=== PATIENT | female | born 1990 | race Caucasian/White ===

== ENCOUNTER 2019-10-28 08:58 | Inpatient (IN) | payer MEDICAID, OTHER ==
[2019-10-28] MEDS ORDERED: Butorphanol 1 MG/ML SDV IVPUSH PRN (09:58)
[2019-10-28] MEDS ORDERED: Sodium Chloride 0.9% 2.5 ML Syringe FLUSH PRN (09:58)
[2019-10-28] MEDS ORDERED: Nalbuphine 10 MG/1 ML Vial IVPUSH PRN (09:58)
[2019-10-28] MEDS ORDERED: Sodium Chloride 0.9% 10 ML Syringe FLUSH PRN (09:58)
[2019-10-28] MEDS ORDERED: Lidocaine 1% 50 ML MDV INJECT PRN (09:58)
[2019-10-28] MEDS ORDERED: Sodium Chloride 0.9% 10 ML SDV IV PRN (09:58)
[2019-10-28] MEDS ORDERED: Misoprostol 200 MCG Tab PO PRN (09:58)
[2019-10-28] MEDS ORDERED: Water For Irrigation,Sterile 1,000 ML Container IRR PRN (09:58)
[2019-10-28] MEDS ORDERED: Tranexamic Acid 1,000 MG in Sodium Chloride 0.9% 100 ML IV PRN (09:58)
[2019-10-28] MEDS ORDERED: Methylergonovine 0.2 MG/1 ML Amp IM PRN (09:58)
[2019-10-28] MEDS ORDERED: Carboprost Tromethamine 250 MCG/1 ML Amp IM PRN (09:58)
[2019-10-28] MEDS ORDERED: Oxytocin/0.9 % Sodium Chloride 30 UNIT/500 ML BAG IV SCH ×2 (10:00→16:45)
[2019-10-28] MEDS: Lactated Ringers 1,000 ML IV SCH ×3 (10:26→19:51)
[2019-10-28] MEDS ORDERED: Ampicillin 2 GM in Sodium Chloride 0.9% 100 ML IV ONE (10:30)
--- NOTE | 2019-10-28 10:48 | PCM.LDHP ---
L&D History of Present Illness - General Date of Service: 10/28/19 Admit Problem/Dx: Patient Status Order with Admit Dx/Problem 10/28/19 08:53 Patient Status [ADT] Routine 10/28/19 09:58 Patient Status [ADT] Routine Admission Diagnosis/Problem Admission Diagnosis/Problem Source of Information: Patient History Limitations: Reports: No Limitations - History of Present Illness Introduction:: at 39 weeks (DYLON: 11/04/19); cristhian approximately every 5 minutes; A+, rubella immune, GBS positive; SVE 4cm/100%/-3, soft, midposition, membranes intact per nurse report H&P Review of Systems - Review of Systems: Review Of Systems: See Below General: Reports: No Symptoms HEENT: Reports: No Symptoms Pulmonary: Reports: No Symptoms Cardiovascular: Reports: No Symptoms Gastrointestinal: Reports: No Symptoms Genitourinary: Reports: No Symptoms Musculoskeletal: Reports: No Symptoms Skin: Reports: No Symptoms Psychiatric: Reports: No Symptoms Neurological: Reports: No Symptoms Hematologic/Lymphatic: Reports: No Symptoms Immunologic: Reports: No Symptoms L&D Exam - Exam Exam: See Below - OB Specific Contraction Intensity: Mild to Moderate Movement: Active Heart Tones: Present Heart Rate (FHR) Variability: Moderate (6-25 bmp) Presentation: Vertex - Wong Score Wong Score Cervix Position: Midposition Wong Score Consistency: Soft Wong Score Effacement: >80% Wong Score Dilation: 3-4 cm Wong Score Infant's Station: -3 Wong Score Total: 8 - Exam General: Alert, Oriented, Cooperative Lungs: Normal Respiratory Effort Cardiovascular: Regular Rate, Regular Rhythm GI/Abdominal Exam: Soft, Non-Tender Rectal Exam: Deferred Genitourinary: Deferred Back Exam: Normal Inspection, Full Range of Motion Extremities: Normal Inspection, Normal Range of Motion, Non-Tender, Normal Capillary Refill Skin: Warm, Dry, Intact Neurological: Strength Equal Bilateral, Normal Speech, Normal Tone, Sensation Intact Psychiatric: Alert, Normal Affect, Normal Mood - Problem List (1) Supervision of normal IUP (intrauterine ) in primigravida SNOMED Code(s): 69058532, 945224582, 989375975, 494258553 ICD Code: Z34.00 - ENCNTR FOR SUPRVSN OF NORMAL FIRST , UNSP TRIMESTER Status: Acute Priority: High Current Visit: Yes Qualifiers: Trimester: third trimester Qualified Code(s): Z34.03 - Encounter for supervision of normal first , third trimester Problem List Initiated/Reviewed/Updated: Yes Orders Last 24hrs: Active Orders 24 hr Category Date Time Status Patient Status [ADT] Routine ADT 10/28/19 08:53 Active Patient Status [ADT] Routine ADT 10/28/19 09:58 Active Heart Tones [RC] CONTINUOUS Care 10/28/19 09:58 Active Non Stress Test [RC] PER UNIT ROUTINE Care 10/28/19 09:56 Active Non Stress Test [RC] PER UNIT ROUTINE Care 10/28/19 09:58 Active May Shower [RC] ASDIRECTED Care 10/28/19 09:58 Active Notify Provider [RC] PRN Care 10/28/19 09:58 Active Up ad Kena [RC] ASDIRECTED Care 10/28/19 09:56 Active Up ad Kena [RC] ASDIRECTED Care 10/28/19 09:58 Active Vaginal Exam [RC] Click to Edit Care 10/28/19 09:56 Active Vaginal Exam [RC] PRN Care 10/28/19 09:58 Active Vital Signs [RC] PER UNIT ROUTINE Care 10/28/19 09:56 Active Vital Signs [RC] PER UNIT ROUTINE Care 10/28/19 09:58 Active CBC W/O DIFF,HEMOGRAM [HEME] Routine Lab 10/28/19 09:58 Ordered RPR (SYPHILIS SERO) W/ RFLX [REF] Routine Lab 10/28/19 09:58 Ordered TYPE AND SCREEN [BBK] Routine Lab 10/28/19 09:58 Ordered Ampicillin 1 gm Med 10/28/19 14:30 Active Sodium Chloride 0.9% [Normal Saline] 50 ml IV Q4H Ampicillin 2 gm Med 10/28/19 10:30 Active Sodium Chloride 0.9% [Normal Saline] 100 ml IV ONETIME Butorphanol [Stadol] Med 10/28/19 09:58 Active 1 mg IVPUSH Q1H PRN Carboprost Tromethamine [Hemabate DS] Med 10/28/19 09:58 Active 250 mcg IM ASDIRECTED PRN Lactated Ringers [Ringers, Lactated] 1,000 ml Med 10/28/19 10:00 Active IV ASDIRECTED Lidocaine 1% [Xylocaine 1%] Med 10/28/19 09:58 Active 50 ml INJECT ONETIME PRN Methylergonovine [Methergine] Med 10/28/19 09:58 Active 0.2 mg IM ASDIRECTED PRN Nalbuphine [Nubain] Med 10/28/19 09:58 Active 10 mg IVPUSH Q1H PRN Oxytocin/0.9 % Sodium Chloride [Oxytocin 30 Unit/500 ML Med 10/28/19 10:00 Active -NS] 30 unit in 500 ml IV TITRATE Sodium Chloride 0.9% [Normal Saline] Med 10/28/19 09:58 Active 10 ml IV ASDIRECTED PRN Sodium Chloride 0.9% [Saline Flush] Med 10/28/19 09:58 Active 10 ml FLUSH ASDIRECTED PRN Sodium Chloride 0.9% [Saline Flush] Med 10/28/19 09:58 Active 2.5 ml FLUSH ASDIRECTED PRN Tranexamic Acid [Cyklokapron] 1,000 mg Med 10/28/19 09:58 Active Sodium Chloride 0.9% [Normal Saline] 100 ml IV ONETIME Water For Irrigation,Sterile [Sterile Water for Med 10/28/19 09:58 Active Irrigation] 1,000 ml IRR ASDIRECTED PRN miSOPROStoL [Cytotec] Med 10/28/19 09:58 Active 200 mcg PO ONETIME PRN Scalp Electrode [WOMSER] Per Unit Routine Oth 10/28/19 09:58 Ordered Peripheral IV Insertion Adult [OM.PC] Routine Oth 10/28/19 09:58 Ordered Resuscitation Status Routine Resus Stat 10/28/19 09:56 Ordered Medication Orders Butorphanol Tartrate (Stadol) 1 mg IVPUSH Q1H PRN PRN Reason: Pain Carboprost Tromethamine (Hemabate Ds) 250 mcg IM ASDIRECTED PRN PRN Reason: Post Hemorrhage Lactated Ringer's (Ringers, Lactated) 1,000 mls @ 150 mls/hr IV ASDIRECTED MENDEZ Last Admin: 10/28/19 10:26 Dose: 150 mls/hr Documented by: BARBRA Oxytocin/Sodium Chloride (Oxytocin 30 Unit/500 Ml-Ns) 30 unit in 500 mls @ 500 mls/hr IV TITRATE [facility] Tranexamic Acid 1,000 mg/ (Sodium Chloride) 110 mls @ 660 mls/hr IV ONETIME PRN PRN Reason: Bleeding Ampicillin Sodium 2 gm/ Sodium (Chloride) 100 mls @ 200 mls/hr IV ONETIME ONE Stop: 10/28/19 10:59 Last Admin: 10/28/19 10:32 Dose: 200 mls/hr Documented by: KNUDAMB Ampicillin Sodium 1 gm/ Sodium (Chloride) 50 mls @ 100 mls/hr IV Q4H MENDEZ Lidocaine HCl (Xylocaine 1%) 50 ml INJECT ONETIME PRN PRN Reason: Laceration repair Methylergonovine Maleate (Methergine) 0.2 mg IM ASDIRECTED PRN PRN Reason: Post Hemorrhage Misoprostol (Cytotec) 200 mcg PO ONETIME PRN PRN Reason: Post Hemorrhage Nalbuphine HCl (Nubain) 10 mg IVPUSH Q1H PRN PRN Reason: Pain (severe 7-10) Sodium Chloride (Saline Flush) 10 ml FLUSH ASDIRECTED PRN PRN Reason: Keep Vein Open Sodium Chloride (Saline Flush) 2.5 ml FLUSH ASDIRECTED PRN PRN Reason: Keep Vein Open Sodium Chloride (Normal Saline) 10 ml IV ASDIRECTED PRN PRN Reason: IV Use Sterile Water (Sterile Water For Irrigation) 1,000 ml IRR ASDIRECTED PRN PRN Reason: delivery Assessment/Plan Comment:: Admit A: at 39 weeks (DYLON: 11/04/19) presenting to labor and delivery with complaints of uterine contractions increasing in frequency and pain; cristhian approximately every 5 minutes; A+, Rubella immune, GBS+; SVE 4cm/100%/-3, soft, midposition, membranes intact per nurse report P: Admit for labor; start GBS prophylaxis; epidural PRN; Dr. Min updated.
[2019-10-28] MEDS: Ampicillin 1 GM in Sodium Chloride 0.9% 50 ML IV SCH ×2 (14:29→19:00)
[2019-10-28] MEDS ORDERED: Bupivicaine/fentaNYL/NS 250 ML ONE (18:19)
--- NOTE | 2019-10-28 19:17 | PCM.PREANE ---
Preanesthetic Assessment - Procedure Proposed Procedure: continuous labor epidural - Anesthesia/Transfusion/Family Hx Anesthesia History: No Prior Anesthesia Transfusion History: No Prior Transfusion(s) - Review of Systems General: No Symptoms Pulmonary: No Symptoms Cardiovascular: No Symptoms Gastrointestinal: No Symptoms Neurological: No Symptoms Other: Reports: None - Physical Assessment Vital Signs: see RN charting Height: 5 ft 2 in Weight: 84.368 kg ASA Class: 2 Mental Status: Alert & Oriented x3 Airway Class: Mallampati = 1 Dentition: Reports: Normal Dentition ROM/Head Extension: Full Lungs: Clear to Auscultation, Normal Respiratory Effort Cardiovascular: Regular Rate, Regular Rhythm - Lab Values: Laboratory Last Values WBC 7.99 K/uL (4.0-11.0) 10/28/19 10: RBC 4.42 M/uL (4.30-5.90) 10/28/19 10: Hgb 12.2 g/dL (12.0-16.0) 10/28/19 10:26 Hct 38.1 % (36.0-46.0) 10/28/19 10:26 MCV 86.2 fL (80.0-98.0) 10/28/19 10:26 MCH 27.6 pg (27.0-32.0) 10/28/19 10:26 MCHC 32.0 g/dL (31.0-37.0) 10/28/19 10:26 RDW Std Deviation 48.2 fl (28.0-62.0) 10/28/19 10:26 RDW Coeff of Aylin 16 % (11.0-15.0) H 10/28/19 10:26 Plt Count 211 K/uL (150-400) 10/28/19 10:26 MPV 12.60 fL (7.40-12.00) H 10/28/19 10:26 Nucleated RBC % 0.0 /100WBC 10/28/19 10:26 Nucleated RBCs # 0 K/uL 10/28/19 10:26 COVID-19 (ЕКАТЕРИНА) NEGATIVE (NEGATIVE) 10/28/19 10:45 Blood Type A POSITIVE 10/28/19 10:26 Antibody Screen NEGATIVE 10/28/19 10:26 - Allergies Allergies/Adverse Reactions: Allergies Allergy/AdvReac Type Severity Reaction Status Date / Time No Known Allergies Allergy Verified 10/28/19 10:53 - Acknowledgements Anesthesia Type Planned: Epidural Pt an Appropriate Candidate for the Planned Anesthesia: Yes Alternatives and Risks of Anesthesia Discussed w Pt/Guardian: Yes Pt/Guardian Understands and Agrees with Anesthesia Plan: Yes PreAnesthesia Questionnaire - Past Health History Medical/Surgical History: Denies Medical/Surgical History HEENT History: Reports: None Cardiovascular History: Reports: None Respiratory History: Reports: None Gastrointestinal History: Reports: None Genitourinary History: Reports: None ASTROCHEMIST History: Reports: : 1 Para: 0 Musculoskeletal History: Reports: None Neurological History: Reports: None Psychiatric History: Reports: None Endocrine/Metabolic History: Reports: None Hematologic History: Reports: None Immunologic History: Reports: None Oncologic (Cancer) History: Reports: None Dermatologic History: Reports: None - Infectious Disease History Infectious Disease History: Reports: None - Past Surgical History Head Surgeries/Procedures: Reports: None - SUBSTANCE USE Smoking Status *Q: Never Smoker - HOME MEDS Home Medications: Home Meds . [No Known Home Meds] 10/28/19 [History] - CURRENT (IN HOUSE) MEDS Current Meds: Current Medications Butorphanol Tartrate (Stadol) 1 mg IVPUSH Q1H PRN PRN Reason: Pain Carboprost Tromethamine (Hemabate Ds) 250 mcg IM ASDIRECTED PRN PRN Reason: Post Hemorrhage Lactated Ringer's (Ringers, Lactated) 1,000 mls @ 150 mls/hr IV ASDIRECTED MENDEZ Last Admin: 10/28/19 16:31 Dose: 150 mls/hr Documented by: Oxytocin/Sodium Chloride (Oxytocin 30 Unit/500 Ml-Ns) 30 unit in 500 mls @ 500 mls/hr IV TITRATE MENDEZ Tranexamic Acid 1,000 mg/ (Sodium Chloride) 110 mls @ 660 mls/hr IV ONETIME PRN PRN Reason: Bleeding Ampicillin Sodium 1 gm/ Sodium (Chloride) 50 mls @ 100 mls/hr IV Q4H MENDEZ Last Admin: 10/28/19 19:00 Dose: 100 mls/hr Documented by: Oxytocin/Sodium Chloride (Oxytocin 30 Unit/500 Ml-Ns) 30 unit in 500 mls @ 2 mls/hr IV TITRATE MNEDEZ; Protocol Last Titration: 10/28/19 17:14 Dose: 6 munits/min, 6 mls/hr Documented by: Lidocaine HCl (Xylocaine 1%) 50 ml INJECT ONETIME PRN PRN Reason: Laceration repair Methylergonovine Maleate (Methergine) 0.2 mg IM ASDIRECTED PRN PRN Reason: Post Hemorrhage Misoprostol (Cytotec) 200 mcg PO ONETIME PRN PRN Reason: Post Hemorrhage Nalbuphine HCl (Nubain) 10 mg IVPUSH Q1H PRN PRN Reason: Pain (severe 7-10) Sodium Chloride (Saline Flush) 10 ml FLUSH ASDIRECTED PRN PRN Reason: Keep Vein Open Sodium Chloride (Saline Flush) 2.5 ml FLUSH ASDIRECTED PRN PRN Reason: Keep Vein Open Sodium Chloride (Normal Saline) 10 ml IV ASDIRECTED PRN PRN Reason: IV Use Sterile Water (Sterile Water For Irrigation) 1,000 ml IRR ASDIRECTED PRN PRN Reason: delivery Discontinued Medications Ampicillin Sodium 2 gm/ Sodium (Chloride) 100 mls @ 200 mls/hr IV ONETIME ONE Stop: 10/28/19 10:59 Last Admin: 10/28/19 10:32 Dose: 200 mls/hr Documented by: Fentanyl/Bupivacaine HCl (Fentanyl/Bupivacaine/Ns 2 Mcg-0.125% 250 Ml) Confirm Administered Dose 250 mls @ as directed .ROUTE .STK-MED ONE Stop: 10/28/19 18:20
[2019-10-28] MEDS ORDERED: Witch Hazel Medicated Pads 40/Jar TOP PRN (21:04)
[2019-10-28] MEDS ORDERED: Benzocaine/Menthol 20%-0.5% Spray 78 GM Cannister TOP PRN (21:04)
[2019-10-28] MEDS ORDERED: Bisacodyl 10 MG Supp RECTAL PRN (21:04)
[2019-10-28] MEDS ORDERED: Acetaminophen 500 MG Tab PO PRN ×2 (21:04)
[2019-10-28] MEDS ORDERED: Ibuprofen 400 MG Tab PO PRN (21:04)
[2019-10-28] MEDS ORDERED: oxyCODONE 5 MG Tab PO PRN (21:04)
[2019-10-28] MEDS ORDERED: Lanolin 100% Cream 7 GM Tube TOP PRN (21:04)
[2019-10-28] MEDS ORDERED: Ibuprofen 800 MG Tab PO PRN (21:04)
[2019-10-28] MEDS: Docusate Sodium 100 MG Cap PO PRN (22:01)
--- NOTE | 2019-10-29 07:50 | PCM48HPAN ---
Post Anesthesia Note - EVALUATION WITHIN 48HRS OF ANESTHETIC Vital Signs in Normal Range: Yes Patient Participated in Evaluation: Yes Respiratory Function Stable: Yes Airway Patent: Yes Cardiovascular Function Stable: Yes Hydration Status Stable: Yes Pain Control Satisfactory: Yes Nausea and Vomiting Control Satisfactory: Yes Mental Status Recovered: Yes Vital Signs: Last Vital Signs Temp 98.0 F 10/29/19 04:37 Pulse 87 10/29/19 04:37 Resp 15 10/29/19 04:37 BP 112/75 10/29/19 04:37 Pulse Ox 96 10/29/19 04:37 - COMMENTS/OBSERVATIONS Free Text/Narrative:: Pt. had been up and walking. Denied any weakness in the legs or numbness and tingling.
[2019-10-29] MEDS ORDERED: Calcium Carbonate 500 MG Tab.Chew PO PRN (08:27)
--- NOTE | 2019-10-29 11:05 | OR ---
SURGEON: Balta Min MD DATE OF PROCEDURE: 10/28/2019 Ms. Harris is 29 years old primigravida. She is 39+. She is followed in our practice primarily by our nurse midwifery service. She had no complication. Her GBS status was positive. She is admitted in active labor. At the time of admission, she was 4 to 5 cm with bulging bag of water. She was started on antibiotic appropriately, and after 2 doses of antibiotic, she had an artificial rupture of membranes of clear fluid. The patient progressed to complete, and commenced pushing. After pushing for an hour and a half without any progress, I was consulted. Examination showed that the fetus is in right occiput transverse, and it was zero station. At that time, heart rate was normal, and the baby was doing well. I advised the patient at the time to have epidural anesthesia to relax and labor down, which she did, and after an hour of epidural and laboring down, I re-evaluated the patient. She was in right occiput transverse, still in +1 station, and she was amenable to vacuum extraction, so after consulting and explaining to the patient, Kiwi vacuum extraction was applied, and then during the pushing, I was able to rotate the fetus to occiput anterior, and then we accomplished normal spontaneous vaginal delivery without any problem. Placenta delivered spontaneous, complete, and intact. There was no need for episiotomy. There was no labial, vaginal, or perineal laceration. Estimated the blood loss is 350 to 400 mL. heart rate was category 1 through the entire process of labor. There was no complication in the labor or the delivery of this fetus. YOUSUF / CHICA /[id number]
--- NOTE | 2019-10-30 10:47 | PCM.DCSUM1 ---
Discharge Summary - Hospital Course Free Text/Narrative:: Karla is a 31 yo PPD1 S/P uncomplicated to term NBF. 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 Patient is moderately well and supplementing with formula, resting comfortably in bed with in bassinet. Patient reports she is eating, voiding, ambulating independently and without difficulty. Patient denies any problems or concerns at this time except mild-moderate intermittent uterine cramping relieved with Tylenol and Ibuprofen. Patient reports small vaginal bleeding, with few small clots. Patient verbalizes her readiness to be discharged home. Diagnosis: Stroke: No - Discharge Data Discharge Date: 10/30/19 Discharge Disposition: Home, Self-Care 01 Condition: Good - Referral to Home Health Primary Care Physician: PCP None - Discharge Diagnosis/Problem(s) (1) Vacuum-assisted vaginal delivery SNOMED Code(s): 79858140809502410 ICD Code: Z37.9 - OUTCOME OF DELIVERY, UNSPECIFIED Status: Acute Priority: High Current Visit: Yes (2) Lactating mother SNOMED Code(s): 474475991, [id number] ICD Code: Z39.1 - ENCOUNTER FOR CARE AND EXAMINATION OF LACTATING MOTHER Status: Acute Priority: High Current Visit: Yes - Patient Instructions Diet: Usual Diet as Tolerated, Regular Diet as Tolerated, Drink 8-10+ Gla sses/Day, No Alcoholic Beverages Activity: As Tolerated, No Strenuous Activities Driving: May Drive Today Driving, Other: Sitz bath as needed for perineal comfort Showering/Bathing: May Shower Notify Provider of: Fever, Increased Pain, Swelling and Redness, Drainage, Nausea and/or Vomiting - Discharge Plan *PRESCRIPTION DRUG MONITORING PROGRAM REVIEWED*: No *COPY OF PRESCRIPTION DRUG MONITORING REPORT IN PATIENT RAJAT: No Prescriptions/Med Rec: Ibuprofen [Motrin] 800 mg PO Q8H PRN #90 tablet PRN Reason: Pain Home Medications: Home Meds Ibuprofen [Motrin] 800 mg PO Q8H PRN #90 tablet 10/30/19 [Rx] Oxygen Therapy Mode: Room Air Referrals: [facility] [Outside] Tere Garcia, GABINOM, [facility] [Mid-] - 12/09/19 1:15 pm - Discharge Summary/Plan Comment DC Time >30 min.: Yes (May discharge home today.) Discharge Summary/Plan Comment: Karla is a 29 yo PPD1 S/P uncomplicated to term NBF. 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 Hemodynamically stable, afebrile. Patient is exclusively moderately well, resting comfortably in bed with in bassinet. Patient reports she is eating, voiding, ambulating independently and without difficulty. Patient denies any problems or concerns at this time except mild-moderate intermittent uterine cramping relieved with Tylenol and Ibuprofen. Patient reports small rubra lochia with no clots. Patient verbalizes her readiness to be discharged home; D/C home today. Recommend F/U with [facility] technical solutions consultant for support: [phone]. RTO in 6 weeks for 6-week PPV or sooner if problems arise. - General Info Date of Service: 10/30/19 Admission Dx/Problem (Free Text: Patient Status Order with Admit Dx/Problem 10/28/19 08:53 Patient Status [ADT] Routine 10/28/19 09:58 Patient Status [ADT] Routine Admission Diagnosis/Problem Admission Diagnosis/Problem Functional Status: Reports: Pain Controlled - Review of Systems General: Reports: No Symptoms HEENT: Reports: No Symptoms Pulmonary: Reports: No Symptoms Cardiovascular: Reports: No Symptoms Gastrointestinal: Reports: No Symptoms Genitourinary: Reports: Pain (Mild to moderate uterine cramping.), Other (Small vaginal bleeding, few small clots.) Musculoskeletal: Reports: No Symptoms Skin: Reports: No Symptoms Neurological: Reports: No Symptoms Psychiatric: Reports: No Symptoms - Patient Data Vitals - Most Recent: Last Vital Signs Temp 96.9 F 10/30/19 08:35 Pulse 71 10/30/19 08:35 Resp 18 10/30/19 08:35 BP 106/63 10/30/19 08:35 Pulse Ox 98 10/30/19 08:35 Weight - Most Recent: 186 lb Med Orders - Current: Current Medications Acetaminophen (Tylenol Extra Strength) 500 mg PO Q4H PRN PRN Reason: Pain Acetaminophen (Tylenol Extra Strength) 1,000 mg PO Q4H PRN PRN Reason: Pain Benzocaine/Menthol (Dermoplast Pain Relief 20%-0.5% [place]) 0 gm TOP ASDIRECTED PRN PRN Reason: Perineal Comfort Measure Last Admin: 10/28/19 22:02 Dose: 1 canister Documented by: Bisacodyl (Dulcolax) 10 mg RECTAL ONETIME PRN PRN Reason: Constipation Calcium Carbonate/Glycine (Tums) 1,000 mg PO Q2HR PRN PRN Reason: Indigestion Last Admin: 10/29/19 09:32 Dose: 1,000 mg Documented by: Docusate Sodium (Colace) 100 mg PO BID PRN PRN Reason: Constipation Last Admin: 10/28/19 22:01 Dose: 100 mg Documented by: Emollient Ointment (Lansinoh Hpa) 0 gm TOP ASDIRECTED PRN PRN Reason: Sore Nipples Ibuprofen (Motrin) 400 mg PO Q4H PRN PRN Reason: Pain Ibuprofen (Motrin) 800 mg PO Q6H PRN PRN Reason: Pain Oxycodone HCl (Oxycodone) 5 mg PO Q2H PRN PRN Reason: Pain Witch Maria Luz (Tucks) 1 pad TOP ASDIRECTED PRN PRN Reason: comfort care Last Admin: 10/28/19 22:02 Dose: 1 tub Documented by: Discontinued Medications Butorphanol Tartrate (Stadol) 1 mg IVPUSH Q1H PRN PRN Reason: Pain Carboprost Tromethamine (Hemabate Ds) 250 mcg IM ASDIRECTED PRN PRN Reason: Post Hemorrhage Lactated Ringer's (Ringers, Lactated) 1,000 mls @ 150 mls/hr IV ASDIRECTED [facility] Last Admin: 10/28/19 19:51 Dose: 150 mls/hr Documented by: Oxytocin/Sodium Chloride (Oxytocin 30 Unit/500 Ml-Ns) 30 unit in 500 mls @ 500 mls/hr IV TITRATE [facility] Tranexamic Acid 1,000 mg/ (Sodium Chloride) 110 mls @ 660 mls/hr IV ONETIME PRN PRN Reason: Bleeding Ampicillin Sodium 2 gm/ Sodium (Chloride) 100 mls @ 200 mls/hr IV ONETIME ONE Stop: 10/28/19 10:59 Last Admin: 10/28/19 10:32 Dose: 200 mls/hr Documented by: Ampicillin Sodium 1 gm/ Sodium (Chloride) 50 mls @ 100 mls/hr IV Q4H [facility] Last Admin: 10/28/19 19:00 Dose: 100 mls/hr Documented by: Oxytocin/Sodium Chloride (Oxytocin 30 Unit/500 Ml-Ns) 30 unit in 500 mls @ 2 mls/hr IV TITRATE MENDEZ; Protocol Last Titration: 10/28/19 20:42 Dose: 999 munits/min, 999 mls/hr Documented by: Fentanyl/Bupivacaine HCl (Fentanyl/Bupivacaine/Ns 2 Mcg-0.125% 250 Ml) Confirm Administered Dose 250 mls @ as directed .ROUTE .Trippy-MED ONE Stop: 10/28/19 18:20 Last Admin: 10/29/19 16:22 Dose: Not Given Documented by: Lidocaine HCl (Xylocaine 1%) 50 ml INJECT ONETIME PRN PRN Reason: Laceration repair Methylergonovine Maleate (Methergine) 0.2 mg IM ASDIRECTED PRN PRN Reason: Post Hemorrhage Misoprostol (Cytotec) 200 mcg PO ONETIME PRN PRN Reason: Post Hemorrhage Nalbuphine HCl (Nubain) 10 mg IVPUSH Q1H PRN PRN Reason: Pain (severe 7-10) Sodium Chloride (Saline Flush) 10 ml FLUSH ASDIRECTED PRN PRN Reason: Keep Vein Open Sodium Chloride (Saline Flush) 2.5 ml FLUSH ASDIRECTED PRN PRN Reason: Keep Vein Open Sodium Chloride (Normal Saline) 10 ml IV ASDIRECTED PRN PRN Reason: IV Use Sterile Water (Sterile Water For Irrigation) 1,000 ml IRR ASDIRECTED PRN PRN Reason: delivery - Exam General: Reports: Alert, Oriented, Cooperative, No Acute Distress HEENT: Reports: Pupils Equal, Pupils Reactive, Mucous Membr. Moist/[place] Neck: Reports: Supple Lungs: Reports: Clear to Auscultation, Normal Respiratory Effort Cardiovascular: Reports: Regular Rate, Regular Rhythm GI/Abdominal Exam: Normal Bowel Sounds, Soft, Non-Tender, No Organomegaly, No Distention (Female) Exam: Normal External Exam, Enlarged Uterus ( uterus, U+2, firm), Vaginal Bleeding (Small rubra lochia, no clots.) Rectal (Female) Exam: Deferred Back Exam: Reports: Normal Inspection, Full Range of Motion Extremities: Normal Inspection, Normal Range of Motion, Non-Tender, No Pedal Edema, Normal Capillary Refill Skin: Reports: Warm, Dry, Intact Wound/Incisions: Reports: Healing Well Neurological: Reports: No New Focal Deficit Psy/Mental Status: Reports: Alert, Normal Affect, Normal Mood
[2019-10-30] MEDS: Docusate Sodium 100 MG Cap PO PRN (14:18)
== END 2019-10-30 20:15 | disposition home or self-care (01) | DRG 807 ==
LOC: MW.OBCHECK 08:58 → MW.OB 09:55 → OBSVTOIN 20:39 → MW.OB 23:55
PROVIDERS: ADMIT Obstetrics & Gynecology; ATTEND Nurse Practitioner Women's Health
PROC: 10D07Z6 Extraction of Products of Conception, Vacuum, Via Natural or Artificial Opening (ICD-10-PCS; principal; 2019-10-28)
PROC: 10907ZC Drainage of Amniotic Fluid, Therapeutic from Products of Conception, Via Natural or Artificial Opening (ICD-10-PCS; 2019-10-28)
DX: O99.824 Streptococcus B carrier state complicating childbirth (principal); Z37.0 Single live birth; Z3A.39 39 weeks gestation of pregnancy; Z20.828 Contact with and (suspected) exposure to other viral communicable diseases
CPT/HCPCS: 01967; 36415; 51702; 59025; 59409; 85014; 85018; 85027; 86592; 86850; 86900; 86901; A9270-GY; J0290; J2590; J7050; J7120; U0002